=== PATIENT | female | born 1950 | race Caucasian/White ===

== ENCOUNTER 2024-07-05 10:44 | Outpatient (RCR) | payer MEDICARE, OTHER, SELFPAY ==
[2024-07-05 11:00] VITALS: BP 172/81
[2024-07-05] MEDS: RECLAST 100 IV (11:08)
== END 2024-07-06 08:48 | disposition home or self-care (01) ==
LOC: OID 10:44
PROVIDERS: ATTENDING PHYSICIAN Physician Assistant
DX: M81.0 Age-related osteoporosis without current pathological fracture (principal); Z59.71 Insufficient health insurance coverage
CPT/HCPCS: 96365; J3489